=== PATIENT | male | born 1950 | race Caucasian/White ===

== ENCOUNTER 2018-09-30 09:30 | Inpatient (IN) | payer MEDICARE ==
[~2018-09-30 09:30] MED LIST: CEFAZOLIN 1 GM INJ; DESFLURANE 15 MIN; METOCLOPRAMIDE 10 MG INJ
[2018-09-30] MEDS ORDERED: PROPOFOL 20 ML ×2 (10:20→11:43)
[2018-09-30] MEDS ORDERED: CEFAZOLIN 1 GM INJ (10:20)
[2018-09-30] MEDS ORDERED: NEOSTIGMINE 3 MG/3 ML SYRINGE (10:20)
[2018-09-30] MEDS ORDERED: GLYCOPYRROLATE 0.4 MG INJ (10:20)
[2018-09-30] MEDS ORDERED: ROCURONIUM 50 MG INJ ×2 (10:20→11:43)
[2018-09-30] MEDS ORDERED: FENTAnyl 50 MCG/ML VIAL ×2 (10:21→11:42)
[2018-09-30] MEDS ORDERED: ONDANSETRON 4 MG INJ (10:21)
[2018-09-30] MEDS ORDERED: MIDAZOLAM 1 MG/ML 2 ML INJ ×2 (10:21→11:43)
[2018-09-30] MEDS ORDERED: DEXAMETHASONE 4 MG/ML 5 ML INJ (10:22)
[2018-09-30 10:43] LABS: ADD MAN DIFF? NO
[2018-09-30 10:44] LABS: BASOPHIL # 0.1 10^3/ul (0.0-0.1); BASOPHILS % 0.7 % (0.0-2.0); EOSINOPHILS # 0.3 10^3/ul (0.0-0.5); EOSINOPHILS % 3.6 % (0.0-7.0); HEMATOCRIT 42.2 % (42.0-52.0); HEMOGLOBIN 14.1 g/dl (14.0-18.0); LYMPHOCYTES # 1.2 10^3/ul (0.8-2.9); LYMPHOCYTES % 16.2 % (15.0-51.0); MEAN CORPUSCULAR HEMOGLOBIN 29.3 pg (29.0-33.0); MEAN CORPUSCULAR HGB CONC 33.4 g/dl (32.0-37.0); MEAN CORPUSCULAR VOLUME 87.6 fl (82.0-101.0); MEAN PLATELET VOLUME 10.4 fl (7.4-10.4); MONOCYTE # 0.5 10^3/ul (0.3-0.9); MONOCYTES % 6.3 % (0.0-11.0); NEUTROPHIL # 5.2 10^3/ul (1.6-7.5); NEUTROPHILS % 72.5 % (39.0-77.0); PLATELET COUNT 203 10^3/UL (140-415); RED BLOOD COUNT 4.82 10^6/ul (4.70-6.10); RED CELL DISTRIBUTION WIDTH 13.8 % (11.5-14.5)
[2018-09-30 10:44] LABS: WHITE BLOOD COUNT 7.1 10^3/ul (4.8-10.8)
[2018-09-30 11:15] LABS: ALANINE AMINOTRANSFERASE 32 IU/L (13-69); ALBUMIN/GLOBULIN RATIO 1.29; ALKALINE PHOSPHATASE 82 IU/L (42-121); ANION GAP 14 (5-13); ASPARTATE AMINO TRANSFERASE 28 IU/L (15-46); BILIRUBIN,INDIRECT 0.5 mg/dl (0-1.1); BILIRUBIN,TOTAL 0.5 mg/dl (0.2-1.3); BLOOD UREA NITROGEN 10 mg/dl (7-20); CARBON DIOXIDE 26 mmol/L (21-31); CHLORIDE 103 mmol/L (97-110); CREATININE 0.76 mg/dl (0.61-1.24); Estimated GFR > 60 mL/min (>60); GLUCOSE 127 mg/dl (70-220); INR 0.92; POTASSIUM 3.8 mmol/L (3.5-5.1); PROTIME 12.5 Sec (11.9-14.9); SODIUM 143 mmol/L (135-144); TOTAL PROTEIN 7.1 g/dl (6.1-8.1)
[2018-09-30 11:16] LABS: PARTIAL THROMBOPLASTIN TIME 31.1 Sec (23.0-35.0)
[2018-09-30] MEDS ORDERED: BUPIVACAINE 0.5%/EPI (SDV) 30 ML INJ (11:24)
[2018-09-30] MEDS ORDERED: LEVALBUTEROL (NEB) 1.25 MG/0.5 ML AMP HHN (11:30)
[2018-09-30] MEDS ORDERED: LORAZEPAM 2 MG INJ IV (11:30)
[2018-09-30] MEDS ORDERED: MIDAZOLAM 1 MG/ML 2 ML INJ IV (11:30)
[2018-09-30] MEDS ORDERED: MEPERIDINE 25 MG INJ IV (11:30)
[2018-09-30] MEDS ORDERED: DIPHENHYDRAMINE 50 MG INJ IV (11:30)
[2018-09-30] MEDS ORDERED: ONDANSETRON 4 MG INJ IV (11:30)
[2018-09-30] MEDS ORDERED: HYDROmorphONE 1 MG/5 ML IV SYRINGE IV ×3 (11:30)
[2018-09-30] MEDS ORDERED: LABETALOL HCL 20MG INJ IV (11:30)
[2018-09-30] MEDS ORDERED: FENTAnyl 50 MCG/ML VIAL IV ×2 (11:30)
[2018-09-30] MEDS ORDERED: IPRATROPIUM (NEB) 0.5 MG/2.5 ML AMP HHN (11:30)
[2018-09-30] MEDS ORDERED: hydrALAzine 20 MG INJ IV (11:30)
[2018-09-30] MEDS ORDERED: LIDOCAINE 2% (SDV) 5 ML INJ (11:43)
[2018-09-30] MEDS ORDERED: SUCCINYLCHOLINE CHLORIDE 100 MG/5 ML SYG IV (11:43)
[2018-09-30] MEDS ORDERED: ROPIVACAINE 0.5 % 30 ML VIAL ×3 (11:48→12:54)
[2018-09-30] MEDS: EPINEPHrine 1 MG/ML 30 ML INJ (13:03)
[2018-09-30] MEDS ORDERED: LABETALOL HCL 20MG INJ (14:06)
[2018-09-30] MEDS ORDERED: PROVENTIL HFA 6.7GM INHALER (14:06)
[2018-09-30] MEDS ORDERED: SUGAMMADEX SODIUM 200 MG/2 ML VIAL IV (14:11)
[2018-09-30] MEDS ORDERED: PROPOFOL 200 ML (15:08)
[2018-09-30] MEDS: PROPOFOL 100 ML IV ×3 (16:40→22:29)
[2018-09-30 17:02] LABS: AADO2 Arterial 370.9 mmHg (7.0-24.0); Arterial Base Excess -4.4 mmol/L (-3.0-3); Arterial Blood Gas Oxygen Sat 92.4 mmHG (95.0-98.0); Arterial COHb 0.5 % (0.0-3.0); Arterial Fraction of Oxyhgb 91.7 % (93.0-99.0); Arterial HCO3 22.9 mmol/L (22.0-26.0); Arterial MetHb 0.3 % (0.0-1.5); Arterial pCO2 50.1 mmhg (35-45); MODE VENT - AC; Site A-Line
[2018-09-30] MEDS: NA BICARBONATE 8.4% 50 ML SYG IV (17:57)
[2018-09-30 18:01] LABS: ADD MAN DIFF? NO
[2018-09-30 18:04] LABS: WHITE BLOOD COUNT 11.3 10^3/ul (4.8-10.8)
[2018-09-30 18:04] LABS: ABNORMAL IP MESSAGE 1; BASOPHILS % 0.3 % (0.0-2.0); EOSINOPHILS % 0.2 % (0.0-7.0); HEMATOCRIT 40.5 % (42.0-52.0); HEMOGLOBIN 13.5 g/dl (14.0-18.0); LYMPHOCYTES # 0.6 10^3/ul (0.8-2.9); LYMPHOCYTES % 5.2 % (15.0-51.0); MEAN CORPUSCULAR HEMOGLOBIN 29.7 pg (29.0-33.0); MEAN CORPUSCULAR HGB CONC 33.3 g/dl (32.0-37.0); MEAN PLATELET VOLUME 10.2 fl (7.4-10.4); MONOCYTE # 0.2 10^3/ul (0.3-0.9); MONOCYTES % 1.5 % (0.0-11.0); NEUTROPHIL # 10.4 10^3/ul (1.6-7.5); NEUTROPHILS % 92.3 % (39.0-77.0); PLATELET COUNT 172 10^3/UL (140-415); POSITIVE DIFF @See below; RED BLOOD COUNT 4.55 10^6/ul (4.70-6.10); RED CELL DISTRIBUTION WIDTH 13.9 % (11.5-14.5)
[2018-09-30 18:24] LABS: ALANINE AMINOTRANSFERASE 53 IU/L (13-69); ALBUMIN 3.7 g/dl (3.3-4.9); ALBUMIN/GLOBULIN RATIO 1.27; ALKALINE PHOSPHATASE 83 IU/L (42-121); ANION GAP 8 (5-13); ASPARTATE AMINO TRANSFERASE 76 IU/L (15-46); BILIRUBIN,INDIRECT 0.2 mg/dl (0-1.1); BILIRUBIN,TOTAL 0.2 mg/dl (0.2-1.3); BLOOD UREA NITROGEN 11 mg/dl (7-20); CALCIUM 8.4 mg/dl (8.4-10.2); CARBON DIOXIDE 23 mmol/L (21-31); CHLORIDE 111 mmol/L (97-110); CREATININE 0.76 mg/dl (0.61-1.24); Estimated GFR > 60 mL/min (>60); GLUCOSE 163 mg/dl (70-220); MAGNESIUM 1.9 mg/dl (1.7-2.5); PHOSPHORUS 4.3 mg/dl (2.5-4.9); POTASSIUM 4.1 mmol/L (3.5-5.1); SODIUM 142 mmol/L (135-144); TOTAL PROTEIN 6.6 g/dl (6.1-8.1)
[2018-09-30 19:28] LABS: AADO2 Arterial 388.1 mmHg (7.0-24.0); Arterial Base Excess -17.4 mmol/L (-3.0-3); Arterial Blood Gas Oxygen Sat 98.3 mmHG (95.0-98.0); Arterial COHb 0.3 % (0.0-3.0); Arterial Fraction of Oxyhgb 97.1 % (93.0-99.0); Arterial HCO3 6.6 mmol/L (22.0-26.0); Arterial MetHb 0.9 % (0.0-1.5); Arterial pCO2 11.9 mmhg (35-45); MODE VENT - AC; Site A-Line
[2018-09-30 19:49] LABS: AADO2 Arterial 383.3 mmHg (7.0-24.0); Arterial Base Excess -2.2 mmol/L (-3.0-3); Arterial Blood Gas Oxygen Sat 98.5 mmHG (95.0-98.0); Arterial COHb 0.3 % (0.0-3.0); Arterial Fraction of Oxyhgb 97.8 % (93.0-99.0); Arterial HCO3 23.7 mmol/L (22.0-26.0); Arterial MetHb 0.4 % (0.0-1.5); MODE VENT - AC; Site A-Line
[2018-10-01] MEDS: PROPOFOL 100 ML IV ×2 (01:19→04:55)
[2018-10-01 05:16] LABS: ADD MAN DIFF? NO
[2018-10-01 05:23] LABS: BASOPHILS % 0.4 % (0.0-2.0); EOSINOPHILS % 0.1 % (0.0-7.0); HEMATOCRIT 39.3 % (42.0-52.0); HEMOGLOBIN 13.1 g/dl (14.0-18.0); LYMPHOCYTES % 9.4 % (15.0-51.0); MEAN CORPUSCULAR HEMOGLOBIN 29.2 pg (29.0-33.0); MEAN CORPUSCULAR HGB CONC 33.3 g/dl (32.0-37.0); MEAN CORPUSCULAR VOLUME 87.5 fl (82.0-101.0); MEAN PLATELET VOLUME 10.6 fl (7.4-10.4); MONOCYTE # 0.7 10^3/ul (0.3-0.9); NEUTROPHIL # 9.2 10^3/ul (1.6-7.5); NEUTROPHILS % 83.6 % (39.0-77.0); PLATELET COUNT 206 10^3/UL (140-415); RED BLOOD COUNT 4.49 10^6/ul (4.70-6.10); RED CELL DISTRIBUTION WIDTH 14.1 % (11.5-14.5)
[2018-10-01 05:57] LABS: ANION GAP 9 (5-13); BLOOD UREA NITROGEN 12 mg/dl (7-20); CALCIUM 8.5 mg/dl (8.4-10.2); CARBON DIOXIDE 25 mmol/L (21-31); CHLORIDE 107 mmol/L (97-110); CREATININE 0.66 mg/dl (0.61-1.24); Estimated GFR > 60 mL/min (>60); GLUCOSE 129 mg/dl (70-220); PHOSPHORUS 4.3 mg/dl (2.5-4.9); POTASSIUM 3.7 mmol/L (3.5-5.1); SODIUM 141 mmol/L (135-144)
[2018-10-01] MEDS ORDERED: FUROSEMIDE 40 MG INJ (08:00)
[2018-10-01] MEDS: FUROSEMIDE 40 MG INJ IV (08:24)
[2018-10-01 10:01] LABS: AADO2 Arterial 137.6 mmHg (7.0-24.0); Arterial Blood Gas Oxygen Sat 97.2 mmHG (95.0-98.0); Arterial COHb 0.3 % (0.0-3.0); Arterial Fraction of Oxyhgb 96.6 % (93.0-99.0); Arterial HCO3 27.8 mmol/L (22.0-26.0); Arterial MetHb 0.3 % (0.0-1.5); Arterial pCO2 43.1 mmhg (35-45); Blood Gas PS 10; MODE VENT - CPAP; Site A-Line
[2018-10-01] MEDS: morphine 4 MG/ML VIAL IV ×2 (10:45→18:16)
[2018-10-01] MEDS: LOSARTAN 50 MG TAB PO (16:04)
[2018-10-01] MEDS: ATORVASTATIN 40 MG TAB PO (20:50)
[2018-10-01] MEDS: PANTOPRAZOLE (EC) 40 MG TAB PO (20:50)
[2018-10-02] MEDS: morphine 4 MG/ML VIAL IV (02:04)
[2018-10-02] MEDS ORDERED: LOSARTAN 50 MG TAB PO (09:00)
[2018-10-02] MEDS: LOSARTAN 50 MG TAB PO (11:01)
[2018-10-02] MEDS: VENLAFAXINE (XR) 37.5 MG CAP PO (11:01)
[2018-10-02] MEDS: SENNA TAB PO (15:14)
[2018-10-02] MEDS: ACETAMINOPHEN 500 MG TAB PO (15:14)
== END 2018-10-02 16:40 | disposition home or self-care (01) | DRG 501 ==
LOC: SDS 09:30 → MS1 10-02 12:21 → SDS 16:29 → REC 16:29 → MS1 10-02 12:35 → ICU 16:59
PROC: 0RBK4ZZ Excision of Left Shoulder Joint, Percutaneous Endoscopic Approach (ICD-10-PCS; principal; 2018-09-30 11:30)
PROC: 0LN24ZZ Release Left Shoulder Tendon, Percutaneous Endoscopic Approach (ICD-10-PCS; 2018-09-30 11:30)
PROC: 0RNK4ZZ Release Left Shoulder Joint, Percutaneous Endoscopic Approach (ICD-10-PCS; 2018-09-30 11:30)
PROC: 0MB24ZZ Excision of Left Shoulder Bursa and Ligament, Percutaneous Endoscopic Approach (ICD-10-PCS; 2018-09-30 11:30)
PROC: 0PBB4ZZ Excision of Left Clavicle, Percutaneous Endoscopic Approach (ICD-10-PCS; 2018-09-30 11:30)
PROC: 5A1935Z Respiratory Ventilation, Less than 24 Consecutive Hours (ICD-10-PCS; 2018-09-30 11:49)
DX: M19.012 Primary osteoarthritis, left shoulder (principal); J96.10 Chronic respiratory failure, unspecified whether with hypoxia or hypercapnia; I69.354 Hemiplegia and hemiparesis following cerebral infarction affecting left non-dominant side; M75.02 Adhesive capsulitis of left shoulder; M75.42 Impingement syndrome of left shoulder; S46.812A Strain of other muscles, fascia and tendons at shoulder and upper arm level, left arm, initial encounter; E66.01 Morbid (severe) obesity due to excess calories; E78.5 Hyperlipidemia, unspecified; E87.70 Fluid overload, unspecified; G47.30 Sleep apnea, unspecified; I11.0 Hypertensive heart disease with heart failure; I50.9 Heart failure, unspecified; J44.9 Chronic obstructive pulmonary disease, unspecified; K21.9 Gastro-esophageal reflux disease without esophagitis; L40.9 Psoriasis, unspecified; R73.03 Prediabetes; X58.XXXA Exposure to other specified factors, initial encounter; Z68.36 Body mass index [BMI] 36.0-36.9, adult; Z87.891 Personal history of nicotine dependence; Z85.46 Personal history of malignant neoplasm of prostate; Z79.82 Long term (current) use of aspirin
CPT/HCPCS: 36600; 71045; 80048; 80053; 82803; 83735; 84100; 85025; 85610; 85730; 87081; 92610; 94002; 94003; 94770; 97161